=== PATIENT | female | born 1995 | race Caucasian/White ===

== ENCOUNTER 2017-05-13 21:21 | Emergency (ER) | payer OTHER ==
[2017-05-13] MEDS ORDERED: Ibuprofen TAB* 600 MG PO ONE (23:22)
[2017-05-13] MEDS ORDERED: Acetaminophen TAB* 325 MG PO ONE (23:22)
--- NOTE | 2017-05-14 01:08 | ED ---
Gaby Weems Gabriel, scribed for Elfar, Abdul, MD on 05/13/17 at 2324 . Influenza-Like Illness - HPI Summary HPI Summary: This patient is a 21 year old F presenting to [facility] accompanied by her friend with a chief complaint of a flu like illness that began today. The patient rates the pain 10/10 in severity. Patient reports cannot feel her legs, nausea, sore throat, myalgia, chills, nasal congestion and MARTINEZ. Patient denies cough, vomiting, diarrhea, and neck pain. - History of Current Complaint Chief Complaint: EDFluSymptoms Time Seen by Provider: 05/13/17 23:16 Hx Obtained From: Patient Onset/Duration: Lasting Hours, Still Present Severity: Moderate Associated Signs & Symptoms: Fever, Myalgia, Sore Throat, Nasal Congestion, Headache - Allergy/Home Medications Allergies/Adverse Reactions: Allergies Allergy/AdvReac Type Severity Reaction Status Date / Time No Known Allergies Allergy Verified 05/13/17 21:30 PMH/Surg Hx/FS Hx/Imm Hx Endocrine/Hematology History: Denies: Hx Anticoagulant Therapy Cardiovascular History: Denies: Hx Aneurysm, Hx Angina, Hx Angioplasty, Hx Atrial Fibrillation Respiratory History: Denies: Hx Bronchopulmonary Dysplasia, Hx Chronic Obstructive Pulmonary Disease (COPD) History: Denies: Hx Acute Renal Failure, Hx Benign Prostatic Hyperplasia Musculoskeletal History: Denies: Hx Arthritis Sensory History: Denies: Hx Cataracts Neurological History: Denies: Hx CVA, Hx Dementia Infectious Disease History: No Infectious Disease History: Denies: Traveled Outside the [place] in Last 30 Days - Family History Known Family History: Negative: Diabetes, Renal Disease, Respiratory Disease, Seizure Disorder - Social History Occupation: Student Lives: Dormitory/Roommates Alcohol Use: Occasionally Hx Substance Use: No Substance Use Type: Reports: None Hx Tobacco Use: No Smoking Status (MU): Never Smoked Tobacco Review of Systems Positive: Fever, Chills Positive: Sore Throat, Other - nasal congestion Negative: Cough Positive: Nausea. Negative: Vomiting, Diarrhea Positive: Myalgia, Other - pt states she cannot feel her legs Neurological: Negative - neck pain Positive: Headache All Other Systems Reviewed And Are Negative: Yes Physical Exam - Summary Physical Exam Summary: VITAL SIGNS: Reviewed. GENERAL: Patient is a well-developed and nourished female who is lying comfortable in the stretcher. Patient is not in any acute respiratory distress. HEAD AND FACE: No signs of trauma. No ecchymosis, hematomas or skull depressions. No sinus tenderness. EYES: PERRLA, EOMI x 2, No injected conjunctiva, no nystagmus. EARS: Hearing grossly intact. Ear canals and tympanic membranes are within normal limits. MOUTH: Oropharynx within normal limits. NECK: Supple, trachea is midline, no adenopathy, no JVD, no carotid bruit, no c- spine tenderness, neck with full ROM. CHEST: Symmetric, no tenderness at palpation LUNGS: Clear to auscultation bilaterally. No wheezing or crackles. CVS: Regular rate and rhythm, S1 and S2 present, no murmurs or gallops appreciated. ABDOMEN: Soft, non-tender. No signs of distention. No rebound no guarding, and no masses palpated. Bowel sounds are normal. EXTREMITIES: FROM in all major joints, no edema, no cyanosis or clubbing. NEURO: Alert and oriented x 3. No acute neurological deficits. Speech is normal and follows commands. SKIN: Dry and warm Triage Information Reviewed: Yes Vital Signs On Initial Exam: Initial Vitals Temp Pulse Resp BP Pulse Ox 100.3 F 112 20 110/73 100 05/13/17 21:27 05/13/17 21:27 05/13/17 21:27 05/13/17 21:27 05/13/17 21:27 Vital Signs Reviewed: Yes Diagnostics - Vital Signs Vital Signs Temp Pulse Resp BP Pulse Ox 05/13/17 21:27 100.3 F 112 20 110/73 100 - Laboratory Lab Statement: Any lab studies that have been ordered have been reviewed, and results considered in the medical decision making process. Flu Symptom Course/Dx - Course Assessment/Plan: This patient is a 21 year old F presenting to [facility] accompanied by her friend with a chief complaint of a flu like illness that began today. The patient rates the pain 10/10 in severity. Patient reports cannot feel her legs, nausea, sore throat, myalgia, chills, nasal congestion and MARTINEZ. Patient denies cough, vomiting, diarrhea, and neck pain. Test results with no significant abnormalities pt was negative for influenza A,B, and strep throat. In the ED course the patient was given Tylenol and Motrin. Dx viral syndrome. Patient will be discharged with prescription for motrin and follow up from [facility]. The patient is agreeable with this plan. - Diagnoses Provider Diagnoses: Viral syndrome Discharge - Discharge Plan Condition: Stable Disposition: HOME Prescriptions: Ibuprofen TAB* [Motrin TAB* 800 MG] 800 mg PO Q6H PRN #30 tab PRN Reason: Pain Patient Education Materials: Viral Syndrome (ED) Forms: *School Release Referrals: [facility] [Primary Care Provider] - 4 Days Additional Instructions: RETURN TO EMERGENCY DEPARTMENT FOR ANY NEW OR WORSENING SYMPTOMS The documentation as recorded by the Gaby chambers Gabriel accurately reflects the service I personally performed and the decisions made by , Keyanna Perez MD.
[2017-05-14 01:49] VITALS: BP 110/70
== END 2017-05-14 01:48 | disposition home or self-care (01) ==
LOC: ED 21:21
DX: B34.9 Viral infection, unspecified (principal); R50.9 Fever, unspecified; J02.9 Acute pharyngitis, unspecified; R09.81 Nasal congestion; R51 Headache
CPT/HCPCS: 87502; 87651; 99282; A9270-GY